=== PATIENT | male | born 1970 | race Caucasian/White ===

== ENCOUNTER 2018-02-13 17:29 | Inpatient (IN) | payer MEDICAID ==
[~2018-02-13] VITALS: Ht 188 cm; Wt 170.5 kg
[~2018-02-13 17:29] MED LIST: CARI-277 OR; IBUP800T24 OR; METH-562 OR
[2018-02-13] MEDS ORDERED: SODIUM CHLORIDE 0.9% 1,000 ML IV ONE (18:45)
[2018-02-13] MEDS ORDERED: CLINDAMYCIN 900MG IV 50 ML IV ONE (18:45)
[2018-02-13] MEDS ORDERED: KETOROLAC TROMETH 30 MG/ML 1ML VIAL IV ONE (18:45)
[2018-02-13 19:14] LABS: Basophils # (auto) 0.1 uL; Basophils % (auto) 1.1 % (0.0-2.0); Eosinophils # (auto) 0.3 uL; Hematocrit 37.5 % (41.0-53.0); Hemoglobin 12.1 g/dL (13.5-17.5); Lymphocytes # (auto) 1.2 uL; Lymphocytes % (auto) 22.1 % (10.0-50.0); Mean Corpuscular Hemoglobin 26.7 pg (28.0-32.0); Mean Corpuscular Hgb Conc. 32.2 g/dL (32.0-36.0); Mean Corpuscular Volume 82.7 fL (80.0-100.0); Monocytes # (auto) 0.5 uL; Monocytes % (auto) 9.4 % (0.0-12.0); Neutrophils # (auto) 3.4 uL; Neutrophils % (auto) 62.4 % (37.0-80.0); Nucleated Red Blood Cells % 0.1 %; Platelet Count (auto) 305 10^3/uL (140-450); Red Blood Cells 4.53 10^6/uL (4.5-5.90); Red Cell Distribution Width 15.9 % (11.8-14.3); White Blood Cell 5.5 10^3/uL (4.4-10.8)
[2018-02-13 19:26] LABS: INR 0.92 (0.9-1.15); Partial Thromboplastin Time 24.7 sec (23.78-33.04); Prothrombin Time 9.9 sec (9.27-12.13)
[2018-02-13 19:33] LABS: Albumin 2.4 g/dL (3.4-5.0); BUN/Creatinine Ratio 18.9; Bilirubin, Total 0.2 mg/dL (0.2-1.0); Calcium 7.7 mg/dL (8.5-10.1); Potassium 3.8 mmol/L (3.5-5.1); Total Protein 6.6 g/dL (6.4-8.2)
[2018-02-13 19:41] LABS: CRP High Sensitivity 9.6 mg/dL (< 0.3); Magnesium 2.6 mg/dL (1.6-2.6)
[2018-02-13] MEDS ORDERED: OMEP20TA PO (22:34)
[2018-02-13] MEDS ORDERED: ONDANSETRON HCL 4 MG/2 ML VIAL IV PRN (23:30)
[2018-02-13] MEDS ORDERED: MORPHINE SULFATE 8mg/ml INJ SDV IV PRN (23:30)
[2018-02-13] MEDS ORDERED: ACETAMINOPHEN 500 MG TAB PO PRN (23:30)
[2018-02-14 01:10] VITALS: BP 112/56
[2018-02-14] MEDS ORDERED: AMOX-277 PO (01:49)
[2018-02-14] MEDS ORDERED: HYDR-4683 PO (01:49)
[2018-02-14] MEDS ORDERED: SULF400T11 PO (01:49)
[2018-02-14 05:35] LABS: Urine Bacteria NONE SEEN /hpf (None Seen); Urine Blood Negative /uL (Negative); Urine Hyaline Cast FEW /lpf (0 - 2); Urine Mucus FEW (None Seen); Urine Specific Gravity 1.042 (1.001-1.035); Urine WBC 3 /hpf (0 - 3)
[2018-02-14 05:42] VITALS: BP 131/67
[2018-02-14] MEDS: CLINDAMYCIN 600MG IV 50 ML IV SCH ×3 (06:03→22:00)
[2018-02-14 06:29] LABS: Basophils # (auto) 0 uL; Basophils % (auto) 0.6 % (0.0-2.0); Eosinophils # (auto) 0.1 uL; Eosinophils % (auto) 1.8 % (0.0-7.0); Lymphocytes # (auto) 0.5 uL; Lymphocytes % (auto) 8.3 % (10.0-50.0); Mean Corpuscular Hemoglobin 27.5 pg (28.0-32.0); Mean Corpuscular Hgb Conc. 33.4 g/dL (32.0-36.0); Mean Corpuscular Volume 82.4 fL (80.0-100.0); Monocytes # (auto) 0.3 uL; Monocytes % (auto) 5.2 % (0.0-12.0); Neutrophils # (auto) 5.5 uL; Neutrophils % (auto) 84.1 % (37.0-80.0); Nucleated Red Blood Cells % 0.1 %; Platelet Count (auto) 247 10^3/uL (140-450); Red Blood Cells 4.37 10^6/uL (4.5-5.90); Red Cell Distribution Width 15.7 % (11.8-14.3); White Blood Cell 6.6 10^3/uL (4.4-10.8)
[2018-02-14 06:31] LABS: BUN/Creatinine Ratio 19.4; Calcium 7.4 mg/dL (8.5-10.1)
[2018-02-14 08:00] VITALS: BP 97/61
[2018-02-14] MEDS: cefTRIAXone 1GM/10ml IVPUSH 10 ML IV SCH (09:32)
[2018-02-14] MEDS: PANTOPRAZOLE 40 MG TAB PO SCH (09:32)
[2018-02-14 13:10] VITALS: BP 113/60
[2018-02-14 21:00] VITALS: BP 114/70
[2018-02-14] MEDS: TEMAZEPAM 15 MG CAP PO PRN (23:54)
[2018-02-14] MEDS: HYDROcodone-ACET 5/325MG TAB PO PRN (23:54)
[2018-02-15 05:09] VITALS: BP 114/68
[2018-02-15] MEDS: CLINDAMYCIN 600MG IV 50 ML IV SCH ×3 (06:35→22:00)
[2018-02-15] MEDS: cefTRIAXone 1GM/10ml IVPUSH 10 ML IV SCH (08:41)
[2018-02-15] MEDS: HYDROcodone-ACET 5/325MG TAB PO PRN ×2 (08:41→19:54)
[2018-02-15] MEDS: PANTOPRAZOLE 40 MG TAB PO SCH (08:41)
[2018-02-15 09:00] VITALS: BP 121/73
[2018-02-15 13:00] VITALS: BP 118/68
[2018-02-15 17:00] VITALS: BP 113/68
[2018-02-15 21:31] VITALS: BP 123/73
[2018-02-16 04:54] VITALS: BP 116/67
[2018-02-16] MEDS: CLINDAMYCIN 600MG IV 50 ML IV SCH ×3 (06:00→21:26)
[2018-02-16 09:09] VITALS: BP 131/83
[2018-02-16] MEDS: cefTRIAXone 1GM/10ml IVPUSH 10 ML IV SCH (10:56)
[2018-02-16] MEDS: PANTOPRAZOLE 40 MG TAB PO SCH (10:56)
[2018-02-16 12:37] LABS: Albumin 2.5 g/dL (3.4-5.0); BUN/Creatinine Ratio 18.1; Bilirubin, Total 0.1 mg/dL (0.2-1.0); Potassium 4.4 mmol/L (3.5-5.1); Total Protein 6.5 g/dL (6.4-8.2)
[2018-02-16 13:00] VITALS: BP 148/79
[2018-02-16 17:00] VITALS: BP 131/72
[2018-02-16] MEDS: HYDROcodone-ACET 5/325MG TAB PO PRN (21:25)
[2018-02-16] MEDS: TEMAZEPAM 15 MG CAP PO PRN (21:25)
[2018-02-16 22:10] VITALS: BP 115/60
[2018-02-17 05:03] VITALS: BP 131/83
[2018-02-17] MEDS: CLINDAMYCIN 600MG IV 50 ML IV SCH (05:37)
[2018-02-17 07:26] VITALS: BP 125/81
[2018-02-17] MEDS: cefTRIAXone 1GM/10ml IVPUSH 10 ML IV SCH (08:52)
[2018-02-17] MEDS: PANTOPRAZOLE 40 MG TAB PO SCH (08:52)
== END 2018-02-17 14:30 | disposition home or self-care (01) | DRG 383 ==
LOC: ER 17:35 → OVERFLOW 17:36 → WEST WING 02-14 00:25
PROVIDERS: ADMIT Nurse Practitioner Family; ATTEND Internal Medicine
DX: L03.115 Cellulitis of right lower limb (principal); E43 Unspecified severe protein-calorie malnutrition; Z68.42 Body mass index [BMI] 45.0-49.9, adult; E66.9 Obesity, unspecified; F17.210 Nicotine dependence, cigarettes, uncomplicated; K21.9 Gastro-esophageal reflux disease without esophagitis; Z79.899 Other long term (current) drug therapy; Z83.3 Family history of diabetes mellitus; Z82.49 Family history of ischemic heart disease and other diseases of the circulatory system
CPT/HCPCS: 36415; 71045; 80048; 80053; 81001; 83735; 85025; 85610; 85730; 86141; 87040; 87077; 87186; 87205; 93005; 93971; 94761; 96365; 96375; 96376; J1885; J3490